=== PATIENT | female | born 1995 | race Caucasian/White ===

== ENCOUNTER 2016-12-17 08:26 | Emergency (ER) | payer BC ==
[2016-12-17 09:13] VITALS: BP 109/67
--- NOTE | 2016-12-17 09:29 | UC ---
Throat Pain/Nasal Siddhartha HPI - HPI Summary HPI Summary: sore throat x 1 week + nasal congestion , pnd , no fever, no chills + cough, bilateral eye redness and discharge x 1 day - History of Current Complaint Chief Complaint: UCRespiratory Stated Complaint: COLD/EYE COMPLAINT Time Seen by Provider: 12/17/16 09:16 Hx Obtained From: Patient Hx Last Menstrual Period: today ?: No Onset/Duration: Gradual Onset, Lasting Days - 7, Still Present Severity: Moderate Cough: Nonproductive Associated Signs & Symptoms: Positive: Sinus Discomfort, Nasal Discharge. Negative: Dysphagia, FB Sensation, Drooling, Wheezing, Hoarseness, Fever, Vomiting, Rash - Allergies/Home Medications Allergies/Adverse Reactions: Allergies Allergy/AdvReac Type Severity Reaction Status Date / Time No Known Allergies Allergy Verified 12/17/16 09:12 Home Medications: Home Medications Dextromethorphan-Guaifenesin [Robitussin Cough & Chest 5-100 mg/5Ml] 1 liq PO Q8H PRN 12/17/16 [History Confirmed 12/17/16] Dextromethorphan-Phenylephrine [Vicks Dayquil Cold & Flu 10-5-325 mg/15Ml] 1 liq PO Q4H PRN 12/17/16 [History Confirmed 12/17/16] Esomeprazole Magnesium [Nexium 24Hr] 20 mg PO QAM 12/17/16 [History Confirmed ] PMH/Surg Hx/FS Hx/Imm Hx Previously Healthy: Yes - Surgical History Surgical History: None - Family History Known Family History: Negative: Diabetes - Social History Alcohol Use: Weekly Alcohol Amount: 7 Substance Use Type: None Smoking Status (MU): Never Smoked Tobacco Review of Systems Constitutional: Negative Skin: Negative Eyes: Drainage, Eye Redness ENT: Sore Throat, Nasal Discharge, Sinus Congestion Respiratory: Cough Cardiovascular: Negative Gastrointestinal: Negative All Other Systems Reviewed And Are Negative: Yes Physical Exam Triage Information Reviewed: Yes Appearance: Well-Appearing, No Pain Distress, Well-Nourished Vital Signs: Initial Vital Signs Temp 98.5 F 12/17/16 09:02 Pulse 76 12/17/16 09:02 Resp 18 12/17/16 09:02 BP 109/67 12/17/16 09:02 Pulse Ox 100 12/17/16 09:02 Vital Signs Reviewed: Yes Eye Exam: Normal Eyes: Positive: Conjunctiva Inflamed - bilateral, Discharge - clear ENT: Positive: Normal ENT inspection, Hearing grossly normal, Pharyngeal erythema, Nasal congestion, Nasal drainage, TMs normal Neck: Positive: Supple, Nontender, No Lymphadenopathy Respiratory: Positive: Chest non-tender, Lungs clear, Normal breath sounds, No respiratory distress Cardiovascular: Positive: RRR, No Murmur, Pulses Normal Skin Exam: Normal Throat Pain/Nasal Course/Dx - Differential Dx/Diagnosis Provider Diagnoses: uri. conjunctivitis Discharge - Discharge Plan Condition: Stable Disposition: HOME Prescriptions: Fluticasone Propionate (Nasal) [Flonase Allergy Relief] 2 spray NA DAILY #1 bottle Tobramycin 0.3% OPHTH.[email or web address]* 1 drop BOTH EYES Q4H #1 btl Patient Education Materials: Upper Respiratory Infection (ED), Conjunctivitis ( ED) Referrals: Non Staff,Doctor [Primary Care Provider] - If Needed
== END 2016-12-17 09:45 | disposition home or self-care (01) ==
LOC: UCCORT 08:26
DX: J06.9 Acute upper respiratory infection, unspecified (principal); H10.9 Unspecified conjunctivitis
CPT/HCPCS: 87651; 99212; G0463